=== PATIENT | female | born 1990 | race Caucasian/White ===

== ENCOUNTER → 2024-10-01 | Outpatient (CLI) | payer BC ==
[2024-10-01 10:19] LABS: BASOPHILS % 0.3 % (0.0-2.0); CHLORIDE 106 mEq/L (98-107); EOSINOPHILS % 2.5 % (0.0-5.0); HEMATOCRIT. 39.8 % (36.0-48.0); HEMOGLOBIN. 13.5 g/dL (12.0-16.0); LYMPHOCYTES % 25.1 % (20.0-50.0); MEAN CORPUSCULAR HEMOGLOBIN 28.2 pg (28.0-32.0); MEAN CORPUSCULAR HGB CONC 33.9 g/dL (31.0-37.0); MEAN CORPUSCULAR VOLUME 83.2 fL (81.0-99.0); MEAN PLATELET VOLUME 8.2 fl (7.4-10.4); MONOCYTES % 5.5 % (2.0-8.0); NEUTROPHILS % 66.6 % (40.0-76.0); PLATELET 306 x1000/uL (130-400); POTASSIUM 4.4 mEq/L (3.5-5.1); RED BLOOD CELL COUNT 4.79 mill/uL (4.2-5.4); RED CELL DISTRIBUTION WIDTH 12.4 % (11.6-14.6); SODIUM 140 mEq/L (136-145); WHITE BLOOD COUNT 8.3 x1000/uL (4.5-11.0)
[2024-10-01 10:20] LABS: CALCIUM 9.7 mg/dL (8.7-10.4); CARBON DIOXIDE 28 mEq/L (21-32)
[2024-10-01 10:24] LABS: IRON 99 ug/dL (50-170)
[2024-10-01 10:25] LABS: CREATININE 0.7 mg/dL (0.6-1.0); GLUCOSE 88 mg/dL (70-105); TRIGLYCERIDE 103 mg/dL (0-150); UREA NITROGEN BLOOD 14 mg/dL (9-23)
[2024-10-01 10:26] LABS: LDL CHOLESTEROL 162 mg/dL (5-100)
[2024-10-01 10:27] LABS: ALANINE AMINOTRANSFERASE 17 IU/L (10-49); ALBUMIN 4.6 g/dL (3.2-4.8); ASPARTATE AMINOTRANSFERASE 18 IU/L (<34); BILIRUBIN TOTAL 0.7 mg/dL (0.1-1.0); CHOLESTEROL 251 mg/dL (<200); HDL CHOLESTEROL 75 mg/dL (>65); PROTEIN TOTAL 7.2 g/dL (6.0-8.3); TOTAL IRON BINDING CAPACITY 293 ug/dl (250-425)
[2024-10-01 10:29] LABS: T4 FREE 1.29 ng/dL (0.89-1.76); THYROID STIMULATING HORMONE 1.88 uIU/mL (0.55-4.78)
[2024-10-01 10:41] LABS: CLARITY URINE CLOUDY (CLEAR); COLOR URINE YELLOW (YELLOW); GLUCOSE URINE NEGATIVE (NEGATIVE); KETONES URINE NEGATIVE (NEGATIVE); LEUKOCYTE ESTERASE URINE TRACE (NEGATIVE); NITRITE URINE NEGATIVE (NEGATIVE); OCCULT BLOOD URINE NEGATIVE (NEGATIVE); PH URINE 5.5 (4.5-8.0); PROTEIN URINE TRACE (NEGATIVE); SPECIFIC GRAVITY URINE 1.027 (1.005-1.030); UROBILINOGEN URINE 0.2 E.U./dL (0.2-1.0)
[2024-10-01 11:37] LABS: BACTERIA URINE 2+; RBC URINE 0-2 /hpf (0-2); SQUAMOUS EPITHELIAL CELL URINE 3+ /lpf (RARE/1+); YEAST URINE NONE SEEN
[2024-10-01 12:48] LABS: ERYTHROCYTE SEDIMENTATION RATE 12 mm/hr (0-20)
[2024-10-01 15:37] LABS: CORTISOL 9.7 ucg/dL
[2024-10-01 15:42] LABS: FOLIC ACID (FOLATE) SERUM 12.06 ng/mL (>5.38)
[2024-10-01 15:43] LABS: FERRITIN 38 ng/mL (10-291)
[2024-10-01 15:44] LABS: VITAMIN B12 SERUM 957 pg/mL (211-911)
== END | disposition home or self-care (01) ==
LOC: LAB 09:48
PROVIDERS: ATTEND Family Medicine Adult Medicine
DX: Z00.00 Encounter for general adult medical examination without abnormal findings (principal); E55.9 Vitamin D deficiency, unspecified; D50.9 Iron deficiency anemia, unspecified
CPT/HCPCS: 36415; 80053; 80061; 81003; 82306; 82533; 82607; 82728; 82746; 83036; 83540; 83550; 84439; 84443; 84481; 85025; 85651

== ENCOUNTER → 2025-04-01 | Outpatient (CLI) | payer BC ==
[2025-04-01 09:54] LABS: CLARITY URINE CLEAR (CLEAR); COLOR URINE YELLOW (YELLOW); GLUCOSE URINE NEGATIVE (NEGATIVE); KETONES URINE NEGATIVE (NEGATIVE); LEUKOCYTE ESTERASE URINE TRACE (NEGATIVE); NITRITE URINE NEGATIVE (NEGATIVE); OCCULT BLOOD URINE NEGATIVE (NEGATIVE); PH URINE 7.0 (4.5-8.0); PROTEIN URINE NEGATIVE (NEGATIVE); SPECIFIC GRAVITY URINE 1.015 (1.005-1.030); UROBILINOGEN URINE 0.2 E.U./dL (0.2-1.0)
[2025-04-01 10:01] LABS: BASOPHILS % 0.3 % (0.0-2.0); EOSINOPHILS % 3.4 % (0.0-5.0); HEMATOCRIT. 39.7 % (36.0-48.0); HEMOGLOBIN. 13.3 g/dL (12.0-16.0); LYMPHOCYTES % 24.8 % (20.0-50.0); MEAN PLATELET VOLUME 8.4 fl (7.4-10.4); MONOCYTES % 5.3 % (2.0-8.0); NEUTROPHILS % 66.2 % (40.0-76.0); PLATELET 301 x1000/uL (130-400); RED BLOOD CELL COUNT 4.75 mill/uL (4.2-5.4); RED CELL DISTRIBUTION WIDTH 12.2 % (11.6-14.6)
[2025-04-01 10:08] LABS: CREATININE 0.8 mg/dL (0.6-1.0); TRIGLYCERIDE 66 mg/dL (0-150); UREA NITROGEN BLOOD 11 mg/dL (9-23)
[2025-04-01 10:09] LABS: LDL CHOLESTEROL 127 mg/dL (5-100)
[2025-04-01 10:10] LABS: ASPARTATE AMINOTRANSFERASE 19 IU/L (<34); BILIRUBIN TOTAL 0.4 mg/dL (0.1-1.0); PROTEIN TOTAL 6.9 g/dL (6.0-8.3)
[2025-04-01 10:12] LABS: T4 FREE 1.31 ng/dL (0.89-1.76)
[2025-04-01 10:23] LABS: SQUAMOUS EPITHELIAL CELL URINE 2+ /lpf (RARE/1+)
[2025-04-01 10:25] LABS: RBC URINE 0-2 /hpf (0-2); WBC URINE 0-2 /hpf (0-2)
[2025-04-01 10:27] LABS: BACTERIA URINE 2+
[2025-04-01 11:31] LABS: FOLIC ACID (FOLATE) SERUM 9.98 ng/mL (>5.38); VITAMIN B12 SERUM 1511 pg/mL (211-911)
[2025-04-01 12:33] LABS: ERYTHROCYTE SEDIMENTATION RATE 6 mm/hr (0-20)
== END | disposition home or self-care (01) ==
LOC: LAB 09:26
PROVIDERS: ATTEND Family Medicine Adult Medicine
DX: E55.9 Vitamin D deficiency, unspecified (principal); D50.9 Iron deficiency anemia, unspecified; Z00.00 Encounter for general adult medical examination without abnormal findings
CPT/HCPCS: 36415; 80053; 80061; 81001; 81003; 82306; 82607; 82728; 82746; 83036; 83540; 83550; 84439; 84443; 84481; 85025; 85651